=== PATIENT | female | born 1990 | race Caucasian/White ===

== ENCOUNTER → 2024-01-22 10:58 | Outpatient (BNVA) | payer OTHER, SELFPAY | PROVIDERS: Visit Provider Family Medicine | DX: Z34.90 Encounter for supervision of normal pregnancy, unspecified, unspecified trimester (principal) | CPT/HCPCS: 80307; 81000; 82950; 84144; 84443; 84702; 85025; 86592; 86762; 86803; 86850; 86900; 87086; 87340; 87806 ==

== ENCOUNTER 2024-01-27 06:04 | Outpatient (CLI) | payer OTHER, SELFPAY ==
--- NOTE | 2024-01-27 06:15 | US_ITS ---
WS: [id number] OBSTETRICAL ULTRASOUND COMPLETE HISTORY: Anatomy/dating US - this coming week if possible COMPARISON: None available. Single intrauterine gestation in Cephalic presentation. Cervix is Closed and normal length. Cervical length is 3.8 cm. Normal amount of amniotic fluid surrounds the fetus. Placenta: Posterior, no previa or abruption. Placenta grade 1 Heart: 142 BPM. Poorly visualized four-chamber heart. Outflow tracts are not adequate. Anatomy: Intracranial structures are negative. Spine is not adequately visualized. kidneys, sto mach and urinary bladder are unremarkable. Abdominal wall, three-vessel cord and cord insertion site are normal. Limited evaluation of the extremities. profile: Not visualized well. Poor image quality. Gender: Not imaged. measurements: BPD = 7.5 cm = 30w0d; HC = 27.2 cm = 29w5d; AC = 25.0 cm = 29w2d; FL = 5.5 cm = 29w2d; EFW: 1380.6 g. 18.4 % Biometry is internally concordant. AGA by ultrasound: 29w4d BALDEV by ultrasound: 04/09/2024 IMPRESSION: 1. Single intrauterine gestation of 29w4d with an BALDEV of 04/09/2024. 2. Extremely limited evaluation of anatomy. Suggest repeat imaging of the anatomy with b jeff attention to detail at no additional charge to the patient.
== END 2024-01-27 06:05 | disposition home or self-care (01) ==
LOC: RAD 06:04
PROVIDERS: Visit Provider Family Medicine
DX: Z34.80 Encounter for supervision of other normal pregnancy, unspecified trimester (principal); Z3A.29 29 weeks gestation of pregnancy
CPT/HCPCS: 76805

== ENCOUNTER 2024-02-19 11:12 | Outpatient (CLI) | payer OTHER, SELFPAY ==
--- NOTE | 2024-02-19 11:15 | US_ITS ---
WS: [id number] OBSTETRICAL ULTRASOUND COMPLETE HISTORY: Complete poorly visualized portions of anatomy US COMPARISON: 01/27/2024 Single intrauterine gestation in Cephalic presentation. Cervix is Closed and normal length. Cervical length is 4.1 cm. Normal amount of amniotic fluid surrounds the fetus. Placenta: RIGHT placenta. No abruption or previa. Placenta grade 2 Heart: 145 BPM. Still limited evaluation of the 4 chambers. The 4 chambers appear present but the int ra-atrial and intraventricular septum is not well visualized. Limited outflow tracts. Anatomy: Spine and intracranial structures are better visualized. Not imaged. Limited evaluation evaluation of the extremities. profile: Not visualized. Gender: Not determined. measurements: BPD = 8.5 cm = 34w1d; 70% HC = 30.0 cm = 33w2d; 14% AC = 27.6 cm = 31w5d; 11% FL = 6.4 cm = 32w6d; 27% EFW: 1967.9 g. 18.3 % Biometry is internally concordant. AGA by ultrasound: 33w0d BALDEV by ultrasound: 04/08/2024 US/US OB limited [id number] IMPRESSION: 1. Single intrauterine gestation of 33w0d with an BALDEV of 04/08/2024. Appropria te growth since the prior ultrasound. 2. Anatomy is better visualized but continues to be limited due to late gestat ional age. Heart structures are poorly visualized. Extremities are poorly visua lized. 3. Grade 2 placenta.
== END 2024-02-19 11:13 | disposition home or self-care (01) ==
LOC: RAD 11:12
PROVIDERS: PCP Family Medicine; Visit Provider Family Medicine
DX: Z34.83 Encounter for supervision of other normal pregnancy, third trimester (principal)
CPT/HCPCS: 76815

== ENCOUNTER → 2024-03-14 09:56 | Outpatient (BNVA) | payer OTHER, SELFPAY | PROVIDERS: PCP Family Medicine; Visit Provider Family Medicine | DX: Z34.80 Encounter for supervision of other normal pregnancy, unspecified trimester (principal) | CPT/HCPCS: 87081 ==

== ENCOUNTER 2024-03-28 08:30 | Outpatient (CLI) | payer OTHER, SELFPAY ==
--- NOTE | 2024-03-28 08:30 | US_ITS ---
WS: [id number] Exam NUMBER: 1 PRESENTATION: Vertex CARDIAC ACTIVITY: 152 MOVEMENT: Satisfactory AMNIOTIC FLUID VOLUME: NANCY was 11.94 cm PLACENTA: Posterior fundal grade 3 BIPARIETAL DIAMETER MEASUREMENTS: 9.6 cm, equals 39w2d. FEMORAL LENGTH MEASUREMENTS: 7.6 cm, equals 39w0d. ABDOMINAL CIRCUMFERENCE: 33.7 cm, equals 37w4d. ESTIMATED WEIGHT: 3440.8 g; 55.7% ESTIMATED GESTATIONAL AGE: 38w5d Biophysical profile score based on fluid volume, breathing movements, tone, and movement was 8 out of 8 possible points. US/US OB lmt w/ BPP wo NST IMPRESSION: Viable intrauterine with single fetus estimated at 38w5d 04/06/2024. Normal biophysical profile score of 8 of 8 possible points.
== END 2024-03-28 08:33 | disposition home or self-care (01) ==
PROVIDERS: PCP Family Medicine; Visit Provider Family Medicine
DX: Z34.80 Encounter for supervision of other normal pregnancy, unspecified trimester (principal)
CPT/HCPCS: 76815; 76819

== ENCOUNTER 2024-04-08 17:50 | Inpatient (IN) | payer OTHER, SELFPAY ==
[2024-04-08] VITALS (14 sets, daily range): BP systolic 116–139; BP diastolic 56–85; PULSE 58–100; RESP 16–20; TEMP 36.6–36.8; O2SAT 97; BMI 28.1
[2024-04-08 17:52] LABS: Basophils % 0.2 %; Eosinophils % 0.3 %; Hematocrit 35.2 % (36-47); Lymphocytes # 1.5 10^3/uL (0.8-4.8); Lymphocytes % 17.4 %; Mean Corpuscular HGB Conc 32.4 g/dL (30-55); Mean Corpuscular Hemoglobin 25.4 pg (27-33); Mean Corpuscular Volume 78.4 fl (85-98); Mean Platelet Volume 9.4 fL (7.4-10.4); Monocytes # 0.8 10^3/uL (0.2-0.9); Monocytes % 8.6 %; Neutrophils # 6.46 10^3/uL (1.8-7.7); Nucleated Red Blood Cells % 0 %; Platelet Count 232 10^3/cmm (157-399); Red Blood Count 4.49 10^6/uL (3.85-5.65); Red Cell Distribution Width 13.8 % (12.1-15.1); White Blood Count 8.85 10^3/uL (3.29-11.43)
--- NOTE | 2024-04-08 18:21 | P.HP_ITS ---
Providers/Chief Complaint 2 Primary Care Provider: Cj Lopez MD Chief Complaint: Contractions History of Present Illness Mahi Garvin is a 33 year old @ 40.2 weeks by LMP c/w 29 wk US. Preg c/b late establish of care at 29 weeks, h/o SGA, h/o low NANCY, rubella non-immune. The patient began having contractions early on the morning of 04/08/2024. They gradually increased until Coming every 2 to 3 minutes. The patient presented to labor delivery triage at approximately 5 PM on 04/08/2024. She was noted to be 8 cm dilated. The patient denies any leaking fluid. She admits to some bloody show. The patient denies any chest pains, shortness of breath, nausea, vomiting, diarrhea, constipation. Medications/Allergies Home Medications Medication Instructions Recorded Confirmed Last Taken Type vitamins no.170-iron 1 tab PO DAILY 01/22/24 04/08/24 1 Day Ago History fumarate 27 mg-folic acid 1 mg ~04/07/24 tablet ferrous fumarate 325 mg (106 mg 325 mg PO DAILY 02/19/24 04/08/24 1 Day Ago History iron) tablet ~04/07/24 Allergies Allergy/AdvReac Type Severity Reaction Status Date / Time No Known Allergies Allergy Verified 01/22/24 09:33 PFSH Acute 2 PFSH: Surgical History No pertinent past surgical history Family History Father Heart disease Grandmother Uterine cancer Social History Smoking and tobacco/nicotine status: never used tobacco/nicotine Alcohol intake: never Substance/Drug Use: never Marital status: Marital status details: Stay at home mother Female Reproductive History: : 3 Vitals/I&O/Wt Last Vital Signs Pulse 72 04/08/24 18:14 Resp 20 H 04/08/24 17:32 BP 121/73 04/08/24 18:14 Weight last 48 hrs Weight 190 lb 8 oz Physical Exam 2 Narrative: General: Alert and oriented x3 Eyes: Pupils equal round and reactive to light and accommodation Mouth: Mucous membranes moist, pharynx non-erythematous Cardiac: Regular rate and rhythm without murmurs Lungs: Clear to auscultation bilaterally without wheezes, crackles or rhonchi Abdomen: Soft, non-tender, fundus consistent with gestational age Extremities: Trace edema in the bilateral lower extremities Data 04/08/24 17:35 A&P Assessment and plan (1) Spontaneous onset of labor: (2) Supervision of normal intrauterine in multigravida: The patient is doing well at this time. heart tones are currently in the mid 140s with moderate variability good accelerations with a category 1 tracing. Contractions are every 3 to 4 minutes. The patient wishes to go without pain medication. She was 8 cm dilated upon arrival and has not made change yet. She is GBS negative. Will proceed with routine intrapartum management of labor and delivery. All questions were answered. The patient is in agreement with the current plan of care. Attestations 2 Medical Necessity Statement*: The patient will be here for greater than two midnights due to routine intrapartum and management of labor and delivery. Coding Level of Care Code Acute Code for Chg Fwd Diagnoses Spontaneous onset of labor Supervision of normal intrauterine in multigravida Z34.80
[2024-04-08] MEDS: dextrose 5%-lactated ringers 1,000 ML 125 ML IV (19:00)
--- NOTE | 2024-04-08 19:24 | PC.NURSE ---
Placenta delivered at this time by physician, patient declines pitocin and states will accept if it is indicated with future reassessment of bleeding.
[2024-04-08] MEDS: lidocaine 2% INJ 20 mL INJECTION (19:29)
--- NOTE | 2024-04-08 19:58 | PM.DELIVERY ---
Delivery Note: Date of delivery: April 08, 2024 Pre-Delivery Course: Mahi Garvin is a 33 year old G3 now P3 status post spontaneous vaginal delivery @ 40.2 weeks gestation by LMP c/w 29 wk US. Preg c/b late establish of care at 29 weeks, h/o SGA, h/o low NANCY, rubella non-immune. The patient began having contractions early on the morning of 04/08/2024. They gradually increased until Coming every 2 to 3 minutes. The patient presented to labor delivery triage at approximately 5 PM on 04/08/2024. She was noted to be 8 cm dilated. The patient denied any leaking fluid. She admitted to some bloody show. The patient denied any chest pains, shortness of breath, nausea, vomiting, diarrhea, constipation. The patient continued to contract on her own, however continues to be 8 cm after approximately 2 hours. For this reason, AROM was performed at 1858 on 04/08/2024. Clear fluid was noted. After this the patient made rapid change and was complete by 190 on 04/08/2024. The patient did not request a laboring epidural or receive IV pain meds. Delivery: The patient began pushing at 1908 on 04/08/2024. She pushed well and the delivered in the OA position at 191 on 04/08/2024. The left shoulder was the anterior shoulder and it delivered with ease. The rest of the infant delivered with ease. The 's mouth and nose were bulb suction by myself and the was crying immediately upon delivery. The was placed on the mother's chest where the nurses were waiting to care for her. The cord was clamped by myself after approximately 1 minute and cut by the infant's mother. Cord blood was obtained. The cord was then drained of blood and traction was placed on umbilical cord. Uterine massage was carried out and the placenta delivered without complication at 192 on 04/08/2024. The placenta was noted to be intact with a central umbilical cord insertion site. The cervix was inspected and no lacerations were noted. The vaginal wall was inspected and a small second-degree perineal laceration was noted. This did not extend to the rectum. 2% lidocaine was placed locally for anesthesia. 3-0 Vicryl was used to repair the laceration in a running fashion. The patient tolerated this well. No sutures were noted in the rectal vault. Currently both the mother and are doing well. History History Past Pregnancies Del. Date GA/Weeks Outcome Route Wt Inf Gender Labor Lgth Comp. Anesthesia Location 11/20/14 39 live - full term Vaginal 7 lb 5 oz Female 24 hrs [place] 07/28/19 37 live - full term Vaginal 5 lb 12 oz Male 6-8 hrs [place], [place] 04/08/24 40 live - full term Vaginal 7 lb 13 oz Female 17 hr [facility] Delivery Date: 11/20/14 Last Updated by: Cj Lopez MD No epidural, 2nd degree tear Delivery Date: 07/28/19 Last Updated by: Cj Lopez MD Induced for measuring small for gestational age, low NANCY, Epidural A&P Assessment and plan (1) Spontaneous vaginal delivery: Coding Level of Care Code Acute Code for Chg Fwd Diagnoses Spontaneous vaginal delivery O80
[2024-04-08] MEDS: ibuprofen 800 mg tablet PO (20:17)
[2024-04-08] MEDS: HYDROcodone-acetaminophen 5-325 mg Tablet PO (21:40)
[2024-04-09] VITALS (7 sets, daily range): BP systolic 103–124; BP diastolic 61–78; PULSE 58–86; RESP 16; TEMP 36.4–36.7; O2SAT 96–99
[2024-04-09] MEDS: HYDROcodone-acetaminophen 5-325 mg Tablet PO ×2 (06:07→12:49)
[2024-04-09 08:16] LABS: Hematocrit 31.1 % (36-47); Mean Corpuscular HGB Conc 31.8 g/dL (30-55); Mean Corpuscular Hemoglobin 25.4 pg (27-33); Mean Corpuscular Volume 79.9 fl (85-98); Platelet Count 202 10^3/cmm (157-399); Red Blood Count 3.89 10^6/uL (3.85-5.65); Red Cell Distribution Width 13.8 % (12.1-15.1); White Blood Count 10.19 10^3/uL (3.29-11.43)
[2024-04-09] MEDS: docusate sodium 100 mg Capsule PO (08:37)
[2024-04-09] MEDS: PRENATAL VIT NO.130/IRON/FOLIC 1 EACH TABLET PO (08:37)
[2024-04-09] MEDS: ibuprofen 800 mg tablet PO ×3 (08:37→21:03)
--- NOTE | 2024-04-09 21:10 | PM.DCS ---
Discharge Providers Date of Admission: 04/08/24 17:50 Date of Discharge: April 09, 2024 Attending Provider at Admission: Cj Lopez MD Attending Provider at Discharge: Cj Lopez MD Primary Care Provider: Cj Lopez MD Diagnoses at Discharge Discharge Diagnosis (1) Spontaneous vaginal delivery: Status: Acute Other Information Additional DC diagnoses/information: 1. Intrauterine status post Fontan/delivery at 40.2 weeks gestation 2. Late establish care at 29 weeks gestation 3. Rubella nonimmune 4. Delivery of healthy infant female weighing 7 pounds 13 ounces with Apgars of 8 and 9 Reason for Visit Reason for Visit: Contractions Brief History: Mahi Garvin is a 33 year old G3 now P3 status post spontaneous vaginal delivery @ 40.2 weeks gestation by LMP c/w 29 wk US. Preg c/b late establish of care at 29 weeks, h/o SGA, h/o low NANCY, rubella non-immune. The patient began having contractions early on the morning of 04/08/2024. They gradually increased until Coming every 2 to 3 minutes. The patient presented to labor delivery triage at approximately 5 PM on 04/08/2024. She was noted to be 8 cm dilated. The patient denied any leaking fluid. She admitted to some bloody show. The patient denied any chest pains, shortness of breath, nausea, vomiting, diarrhea, constipation. Hospital Course Hospital Course The patient continued to contract on her own, however continues to be 8 cm after approximately 2 hours. For this reason, AROM was performed at 1858 on 04/08/2024. Clear fluid was noted. After this the patient made rapid change and was complete by 1908 on 04/08/2024. The patient did not request a laboring epidural or receive IV pain meds. The patient delivered at 191 on 04/08/2024 without complication. She had moderate bleeding and medications were not needed to control this. The patient had a small second-degree tear that was repaired without complication. , the patient has done very well and is ambulating, voiding, passing gas and tolerating food. Her bleeding is well-controlled at this time. Her pain is currently well-controlled. Routine discharge instructions were discussed and the patient requested to be discharged home today. All questions were answered. The patient will plan to follow-up with me in 6 weeks or sooner if needed. Physical Exam Narrative: General: Alert and oriented x3 Cardiac: Regular rate and rhythm without murmurs Lungs: Clear to auscultation bilaterally without wheezes, crackles or rhonchi Abdomen: Soft, mild tenderness over uterus. The uterus is firm and 2 cm below the umbilicus. Extremities: Trace edema in the bilateral lower extremities Discharge Data Studies Completed and Pending Laboratory Results WBC 10.19 10^3/uL (3.29-11.43) 04/09/24 07:21 RBC 3.89 10^6/uL (3.85-5.65) 04/09/24 07:21 Hgb 9.90 g/dL (11.27-16.99) L 04/09/24 07:21 Hct 31.1 % (36-47) L 04/09/24 07:21 MCV 79.9 fl (85-98) L 04/09/24 07:21 MCH 25.4 pg (27-33) L 04/09/24 07:21 MCHC 31.8 g/dL (30-55) 04/09/24 07:21 RDW 13.8 % (12.1-15.1) 04/09/24 07:21 Plt Count 202 10^3/cmm (157-399) 04/09/24 07:21 MPV 10.0 fL (7.4-10.4) 04/09/24 07:21 Neut % (Auto) 73.0 % 04/08/24 17:35 Lymph % (Auto) 17.4 % 04/08/24 17:35 [place] % (Auto) 8.6 % 04/08/24 17:35 Eos % (Auto) 0.3 % 04/08/24 17:35 Baso % (Auto) 0.2 % 04/08/24 17:35 Neut # (Auto) 6.46 10^3/uL (1.8-7.7) 04/08/24 17:35 Lymph # (Auto) 1.5 10^3/uL (0.8-4.8) 04/08/24 17:35 [place] # (Auto) 0.8 10^3/uL (0.2-0.9) 04/08/24 17:35 Eos # (Auto) 0.0 10^3/uL (0.0-0.8) 04/08/24 17:35 Baso # (Auto) 0.0 10^3/uL (0.0-0.1) 04/08/24 17:35 Nucleated RBC % (auto) 0 % 04/08/24 17:35 Nucleated RBCs # 0.0 /100WBC 04/08/24 17:35 Blood Type B Positive 04/08/24 17:35 Rho(D) Type Rh positive 04/08/24 17:35 Antibody Screen Negative 04/08/24 17:35 Vitals Last Vital Signs Temp 98.0 F 04/09/24 15:11 Pulse 86 04/09/24 15:11 Resp 16 04/09/24 15:11 BP 103/76 04/09/24 15:11 Pulse Ox 98 04/09/24 15:11 O2 Del Method Room Air 04/09/24 15:11 Discharge Plan Discharge Patient Disposition: Home Condition: Stable Prescriptions: New ibuprofen 800 mg Tablet 800 mg PO TID Qty: 60 0RF hydrocodone-acetaminophen 5-325 mg Tablet 1 tab PO Q6H PRN (Reason: Moderate To Severe Pain) Qty: 20 0RF Continued PNV no.170-iron fum-folic acid 27 mg iron- 1 mg tablet 1 tab PO DAILY Changed ferrous fumarate 325 mg (106 mg iron) tablet 325 mg PO BIDWMEAL Qty: 30 0RF Discharge Orders: Discharge Order (Routine); Ordered 04/09/24 Ordered By: Cj Lopez Patient Instructions: Depression (DC), Opioid Safety (DC), Preeclampsia and Eclampsia After Delivery (GEN), Hemorrhage (DC), OB Discharge Report, OB Food/Drug Interaction Guide, Opioid Safety, OB [facility], OB Vaginal Deliveries, Abnormal Bleeding Discharge Attestations Time Spent in Discharge Care*: greater than 30 min Quality Metrics Clinical Quality Measures [ No reported AMI, CVA or VTE this stay] Coding Level of Care Code Acute Code for Chg Fwd Diagnoses Spontaneous vaginal delivery O80
== END 2024-04-09 21:23 | disposition home or self-care (01) | DRG 807 ==
LOC: OPOB 19:28 → OBGYN 19:28
PROVIDERS: Admitting Provider Family Medicine; PCP Family Medicine; Visit Provider Family Medicine
DX: O48.0 Post-term pregnancy (principal); Z37.0 Single live birth; Z3A.40 40 weeks gestation of pregnancy; O70.1 Second degree perineal laceration during delivery; O75.89 Other specified complications of labor and delivery
CPT/HCPCS: 36415; 59025; 59409; 85025; 85027; 86850; 86900; 99211; J7121